=== PATIENT | female | born 1970 | race Caucasian/White ===

== ENCOUNTER 2018-10-27 05:05 | Emergency (ER) | payer MEDICAID ==
[~2018-10-27] VITALS: Ht 175.3 cm; Wt 67.0 kg
[~2018-10-27 05:05] MED LIST: CHLO25CA10 PO; ONDA4TAB6 PO
[2018-10-27 05:07] VITALS: BP 136/97
[2018-10-27] MEDS ORDERED: LIDOcaine 1% w/epiNEPHrine 1:200,000 30ml vial IM ONE (05:15)
[2018-10-27] MEDS ORDERED: CEPH500C5 PO (05:25)
[2018-10-27] MEDS ORDERED: BACDS PO (05:25)
== END 2018-10-27 05:35 | disposition home or self-care (01) ==
LOC: ER 05:05
DX: L03.115 Cellulitis of right lower limb (principal); L02.611 Cutaneous abscess of right foot; F15.90 Other stimulant use, unspecified, uncomplicated
CPT/HCPCS: 10060; 99283; J3490

== ENCOUNTER 2018-12-23 10:57 | Emergency (ER) | payer MEDICAID ==
[~2018-12-23] VITALS: Ht 175.3 cm; Wt 65.0 kg
[~2018-12-23 10:57] MED LIST changes: +CEPH500C5 PO
[2018-12-23] MEDS ORDERED: ondansetron/PF 4mg/2ml inj IV ONE (11:05)
[2018-12-23] MEDS ORDERED: normal saline 1000ML IV soln IVB ONE ×2 (11:05→12:30)
[2018-12-23] MEDS ORDERED: morphine 4 MG/ML inj SYRINge IV ONE (11:55)
[2018-12-23 12:03] LABS: EOSINOPHILS # (AUTO) 0.2 X10'3 (0-0.9); EOSINOPHILS % (AUTO) 3.8 % (0-6); HEMATOCRIT 40.6 % (35.0-45.0); HEMOGLOBIN 13.9 g/dl (12.0-16.0); LYMPHOCYTES # (AUTO) 1.3 X10'3 (1.1-4.8); LYMPHOCYTES % (AUTO) 30.2 % (21-51); MEAN CORPUSCULAR HEMOGLOBIN 35.3 PG (27.0-31.0); MEAN CORPUSCULAR HGB CONC 34.1 g/dL (33.0-36.5); MEAN CORPUSCULAR VOLUME 103.4 FL (78-98); MEAN PLATELET VOLUME 6.6 FL (7.4-10.4); MONOCYTES # (AUTO) 0.5 X10'3 (0-0.9); MONOCYTES % (AUTO) 12.3 % (2-12); NEUTROPHILS # (AUTO) 2.3 X10'3 (1.8-7.7); NEUTROPHILS % (AUTO) 52.7 % (42-75); PLATELET COUNT 212 X10'3 (140-440); RED BLOOD COUNT 3.93 X10'6 (4.20-5.60); RED CELL DISTRIBUTION WIDTH 17.1 % (11.5-14.5); WHITE BLOOD COUNT 4.3 X10'3 (4.5-11.0)
[2018-12-23 12:05] LABS: CLARITY,URINE CLOUDY (Clear); GLUCOSE, URINE NEGATIVE (Neg); KETONES,URINE TRACE mg/dl (Neg); LEUKOCYTE ESTERASE ,URINE NEGATIVE (Neg); NITRITES, URINE NEGATIVE (Neg); OCCULT BLOOD,URINE MODERATE (Neg); PROTEIN,URINE 30 mg/dl (Neg); UROBILINOGEN,URINE 0.2 E.U/dL (0.2-1.0)
[2018-12-23 12:06] LABS: URINE HCG NEGATIVE (NEG)
[2018-12-23 12:09] LABS: COLOR,URINE DARK YELLOW (Yellow); UA COLLECTION TYPE CLN CATCH MIDSTREAM
[2018-12-23 12:13] LABS: BACTERIA,URINE 2+ /HPF (Neg); MUCUS STRANDS MODERATE /LPF (Neg); SQUAMOUS EPITHELIAL CELL,UR MANY /LPF (FEW); WBC,URINE 0-4 /HPF (0-4)
[2018-12-23 12:14] LABS: ALANINE AMINOTRANSFERASE 74 U/L (12-78); ALBUMIN 3.2 G/DL (3.4-5.0); ALBUMIN/GLOBULIN RATIO 0.9 (1.1-1.5); ALKALINE PHOSPHATASE 108 IU/L (46-116); ANION GAP 7 (8-16); ASPARTATE AMINO TRANSFERASE 158 U/L (10-37); BILIRUBIN,TOTAL 0.7 MG/DL (0.1-1.0); BLOOD UREA NITROGEN 4 MG/DL (7-18); CALCIUM 8.8 MG/DL (8.5-10.1); CHLORIDE 102 MMOL/L (99-107); CREATININE 0.67 MG/DL (0.40-0.90); GLUCOSE 86 MG/DL (70-104); LIPASE 220 U/L (73-393); POTASSIUM 3.3 MMOL/L (3.5-5.1); SODIUM 141 MMOL/L (135-145); TOTAL CARBON DIOXIDE 32.4 MMOL/L (24-32); TOTAL PROTEIN 6.7 G/DL (6.4-8.2); eGFR > 90 ML/MIN
[2018-12-23 12:18] LABS: URINE AMPHETAMINE SCREEN NEGATIVE (Neg); URINE BARBITUATE SCREEN NEGATIVE (Neg); URINE BENZODIAZEPINES SCREEN NEGATIVE (Neg); URINE CANNABINOID SCREEN NEGATIVE (Neg); URINE COCAINE SCREEN NEGATIVE (Neg); URINE METHADONE SCREEN NEGATIVE (Neg); URINE OPIATE SCREEN NEGATIVE (Neg); URINE PHENCYCLIDINE SCREEN NEGATIVE (Neg)
[2018-12-23] MEDS ORDERED: potassium Cl 20 mEq SR tablet PO STA (12:18)
[2018-12-23] MEDS ORDERED: ONDA4TAB6 PO (13:56)
[2018-12-23 14:22] VITALS: BP 121/83
== END 2018-12-23 14:23 | disposition home or self-care (01) ==
LOC: ER 10:57
DX: R11.10 Vomiting, unspecified (principal); F10.10 Alcohol abuse, uncomplicated; F15.10 Other stimulant abuse, uncomplicated; Z79.899 Other long term (current) drug therapy; Y90.9 Presence of alcohol in blood, level not specified
CPT/HCPCS: 36415; 80053; 80305; 81001; 81025; 83690; 85025; 96361; 96374; 96375; 99284; J2270; J2405; J7030

== ENCOUNTER 2020-07-15 19:56 | Inpatient (IN) | payer MEDICAID ==
[~2020-07-15] VITALS: Ht 175.3 cm; Wt 75.0 kg
[~2020-07-15 19:56] MED LIST changes: -CEPH500C5 PO; +NITR100C6 PO
[2020-07-15] MEDS ORDERED: normal saline 1000ML IV soln IVB ONE (22:30)
[2020-07-15] MEDS ORDERED: thiamine 100mg/ml 2ml inj. IV ONE (22:30)
[2020-07-15] MEDS ORDERED: folic acid 1mg/0.2ml inj IV ONE (22:30)
[2020-07-15 22:49] LABS: BASOPHILS # (AUTO) 0.1 X10'3 (0-0.2); BASOPHILS % (AUTO) 0.6 % (0-1); HEMOGLOBIN 9.9 g/dl (12.0-16.0); LYMPHOCYTES # (AUTO) 3.1 X10'3 (1.1-4.8); MEAN PLATELET VOLUME 6.5 FL (7.4-10.4); MONOCYTES # (AUTO) 1.7 X10'3 (0-0.9); RED CELL DISTRIBUTION WIDTH 13.5 % (11.5-14.5)
[2020-07-15 22:50] LABS: EOSINOPHILS # (AUTO) 0.3 X10'3 (0-0.9); EOSINOPHILS % (AUTO) 1.8 % (0-6); HEMATOCRIT 28.5 % (35.0-45.0); LYMPHOCYTES % (AUTO) 20.7 % (21-51); MEAN CORPUSCULAR HEMOGLOBIN 36.9 PG (27.0-31.0); MEAN CORPUSCULAR HGB CONC 34.7 g/dL (33.0-36.5); MEAN CORPUSCULAR VOLUME 106.3 FL (78-98); MONOCYTES % (AUTO) 11.5 % (2-12); NEUTROPHILS # (AUTO) 9.8 X10'3 (1.8-7.7); NEUTROPHILS % (AUTO) 65.4 % (42-75); PLATELET COUNT 633 X10'3 (140-440); RED BLOOD COUNT 2.68 X10'6 (4.20-5.60)
[2020-07-15 23:01] LABS: ALANINE AMINOTRANSFERASE 19 U/L (12-78); ALBUMIN 2.5 G/DL (3.4-5.0); ALBUMIN/GLOBULIN RATIO 0.5 (1.1-1.5); ALKALINE PHOSPHATASE 319 IU/L (46-116); ANION GAP 12 (8-16); ASPARTATE AMINO TRANSFERASE 123 U/L (10-37); BILIRUBIN,TOTAL 1.7 MG/DL (0.1-1.0); BLOOD UREA NITROGEN 4 MG/DL (7-18); BUN/CREATININE RATIO 4.7 (6.6-38.0); CALCIUM 8.8 MG/DL (8.5-10.1); CHLORIDE 87 MMOL/L (99-107); CREATININE 0.86 MG/DL (0.40-0.90); ETHANOL 0.175 GM/DL (0.0-0.010); GLUCOSE 130 MG/DL (70-104); LIPASE 54 U/L (73-393); MAGNESIUM 1.7 MG/DL (1.5-2.4); PHOSPHORUS 2.1 MG/DL (2.3-4.5); SODIUM 127 MMOL/L (135-145); TOTAL CARBON DIOXIDE 28.5 MMOL/L (24-32); eGFR 70 ML/MIN
[2020-07-15 23:03] LABS: POTASSIUM 2.3 MMOL/L (3.5-5.1)
--- NOTE | 2020-07-15 23:11 | NUR ---
PTS FRIEND Kaitlynn (SPENSER VICTOR) CALLED TO CHECK ON HER. PT STATES OK TO GIVE HIM ANY UPDATES ON HER CONDITION AND PLAN OF CARE, BUT SHE DOES NOT WANT TO TALK WITH HIM NOW. STATES SHE IS TIRED AND WANTS TO SLEEP. Kaitlynn UPDATED OF THIS. HE ASKED IF SHE HAS HER CELL PHONE AND SHE REPORTS NO. I UPDATED HIM THAT I CAN PROVIDE HER WITH A PHONE IF SHE WANTS TO CALL YOU. ASKED FOR HIS NUMBER AND HE WOULD NOT GIVE TO ME, STATES "SHE HAS THE NUMBER". STATES HE MAY BE ABLE TO PICK HER UP FOR DISCHARGE, BUT NOT CERTAIN.
[2020-07-15] MEDS ORDERED: potassium chloride 10mEq ER tablet PO STA (23:18)
[2020-07-15] MEDS ORDERED: Neutra Phos packet PO STA (23:18)
[2020-07-15] MEDS ORDERED: LORazepam 2 mg/ml vial IV ONE (23:25)
[2020-07-15] MEDS: potassium Cl 10 mEq/100mL bag IV SCH (23:44)
[2020-07-15 23:58] LABS: CLARITY,URINE CLOUDY (Clear); COLOR,URINE YELLOW (Yellow); GLUCOSE, URINE NEGATIVE (Neg); KETONES,URINE TRACE mg/dl (Neg); LEUKOCYTE ESTERASE ,URINE MODERATE (Neg); NITRITES, URINE NEGATIVE (Neg); OCCULT BLOOD,URINE TRACE-INTACT (Neg); PROTEIN,URINE 30 mg/dl (Neg); UA COLLECTION TYPE CLN CATCH MIDSTREAM; UROBILINOGEN,URINE >=8.0 E.U/dL (0.2-1.0)
[2020-07-16 00:03] LABS: BACTERIA,URINE 4+ /HPF (Neg); SQUAMOUS EPITHELIAL CELL,UR FEW /LPF (FEW); WBC,URINE 50-100 /HPF (0-4)
[2020-07-16] MEDS ORDERED: potassium Cl 20 mEq SR tablet PO PRN (00:05)
[2020-07-16] MEDS ORDERED: dextrose 50%-water 50ml dispensing syringe IV PRN (00:05)
[2020-07-16] MEDS ORDERED: thiamine inj. 100 MG in normal saline 100ml IV soln 100 ML IV ONE (00:05)
[2020-07-16] MEDS ORDERED: ondansetron/PF 4mg/2ml inj IV PRN (00:05)
[2020-07-16] MEDS ORDERED: normal saline 1000ml 1,000 ML IV SCH (00:05)
[2020-07-16] MEDS ORDERED: magnesium 2GM in 50ml NS 50 ML IV PRN (00:05)
[2020-07-16] MEDS ORDERED: potassium CL 10mEq/100ml bag 100 ML IV PRN ×2 (00:05)
[2020-07-16] MEDS ORDERED: magnesium 2GM in 50ml NS 50 ML IV ONE (00:05)
[2020-07-16] MEDS ORDERED: haloperidol lactate 5mg/ml inj IM PRN (00:05)
[2020-07-16] MEDS ORDERED: acetaminophen 325mg tablet PO PRN (00:05)
[2020-07-16] MEDS ORDERED: LORazepam 2 mg/ml vial IV PRN (00:05)
[2020-07-16] MEDS ORDERED: haloperidol 5mg tablet PO PRN (00:05)
[2020-07-16] MEDS ORDERED: morphine 2 MG/ML inj. syringe IV PRN (00:05)
[2020-07-16] MEDS ORDERED: mag hydrox/Alum hydrox/simeth 30ml oral suspension PO PRN (00:05)
[2020-07-16] MEDS ORDERED: magnesium hydroxide 30ml (MOM) UD suspension PO PRN (00:05)
[2020-07-16] MEDS ORDERED: magnesium 4gm in 100ml NS 100 ML IV PRN (00:05)
[2020-07-16] MEDS ORDERED: magnesium Cl slow-release 64mg tablet PO PRN (00:05)
[2020-07-16] MEDS ORDERED: NO HOME MEDS (00:15)
[2020-07-16] MEDS ORDERED: thiamine 100mg/ml 2ml inj. IV ONE (00:20)
[2020-07-16] MEDS: potassium Cl 10 mEq/100mL bag IV SCH (00:36)
--- NOTE | 2020-07-16 06:19 | NUR ---
PATIENT ON BED ASLEEP,AWAITING FOR INPATIENT ROOM ASSIGNMENT.
[2020-07-16] MEDS: K and/or MAG REPLACEMENT MC SCH ×2 (08:00→20:04)
[2020-07-16 08:34] LABS: ALBUMIN 2.1 G/DL (3.4-5.0); ANION GAP 5 (8-16); BLOOD UREA NITROGEN 4 MG/DL (7-18); BUN/CREATININE RATIO 5.3 (6.6-38.0); CALCIUM 8.6 MG/DL (8.5-10.1); CHLORIDE 97 MMOL/L (99-107); CREATININE 0.75 MG/DL (0.40-0.90); GLUCOSE 107 MG/DL (70-104); POTASSIUM 3.3 MMOL/L (3.5-5.1); SODIUM 131 MMOL/L (135-145); TOTAL CARBON DIOXIDE 28.9 MMOL/L (24-32); eGFR 82 ML/MIN
[2020-07-16] MEDS: multivitamins, therapeutics tablet PO SCH (08:41)
[2020-07-16] MEDS: thiamine 100mg tablet PO SCH (08:42)
[2020-07-16] MEDS: folic acid 1mg tablet PO SCH (08:42)
[2020-07-16] MEDS: docusate sod 100mg capsule PO SCH ×2 (08:42→20:00)
[2020-07-16] MEDS: CefTRIAXone/D5W-Rocephin 1gm 50 ML IV SCH (08:43)
[2020-07-16] MEDS: potassium Cl 20 mEq SR tablet PO PRN ×2 (09:12→15:34)
--- NOTE | 2020-07-16 10:00 | NUR ---
breakfast tray taken out from the room.
[2020-07-16] MEDS ORDERED: folic acid 1mg/0.2ml inj IV SCH (12:00)
[2020-07-16] MEDS ORDERED: thiamine inj. 100 MG, MVI, adult No.4 with vit. K 10 ML in dextrose 5% water 500ml 500 ML IV SCH ×3 (12:00)
--- NOTE | 2020-07-16 12:33 | NUR ---
DR. HIGGINS AT BEDSIDE,ADVANCE DIET TO REGULAR.
--- NOTE | 2020-07-16 13:42 | NUR ---
lunch tray at bedside.
--- NOTE | 2020-07-16 13:48 | NUR ---
patient asleep.awaiting room assignment.
--- NOTE | 2020-07-16 15:38 | NUR ---
patient tachy 120's-130,message sent to hospitalist.
--- NOTE | 2020-07-16 18:54 | NUR ---
Her mom is here visiting, the patient is eating her supper. She said she is feeling stronger than this afternoon, but states she still feels a little foggy and tired. Encouraged her to eat. Informed her that she will more than likely feel even better tomorrow. That it takes about 24 hours for the abx to kick in to start fighting that UTI that she has.
--- NOTE | 2020-07-16 20:21 | NUR ---
Spoke to hospitalist and asked for a sleeping aide for the patient, as the pt. requested a sleeping medicaiton. She stated she will put in a few items to see what works for her.
[2020-07-16] MEDS ORDERED: temazepam 15mg capsule PO PRN (20:25)
[2020-07-16] MEDS ORDERED: diphenhydrAMINE 50 mg/ml inj IV PRN (20:25)
[2020-07-16] MEDS ORDERED: Melatonin 3mg tablet PO SCH (21:00)
--- NOTE | 2020-07-16 21:15 | NUR ---
Received report from ER nurse Rosie RN. Will assume patient care.
--- NOTE | 2020-07-16 21:32 | NUR ---
Patient arrived in room. Patient AOx4. BLL, call light in reach, seizure precautions in place.
[2020-07-16 21:33] VITALS: BP 101/64
[2020-07-17 06:00] VITALS: BP 96/64
--- NOTE | 2020-07-17 06:29 | NUR ---
Patient in room ORTHO 4012. I have received report from Shilpa CRAFT and had the opportunity to ask questions and assume patient care.
[2020-07-17 07:30] LABS: BASOPHILS % (AUTO) 0.5 % (0-1); EOSINOPHILS # (AUTO) 0.2 X10'3 (0-0.9); EOSINOPHILS % (AUTO) 2.3 % (0-6); HEMATOCRIT 22.2 % (35.0-45.0); HEMOGLOBIN 7.6 g/dl (12.0-16.0); LYMPHOCYTES # (AUTO) 1.6 X10'3 (1.1-4.8); LYMPHOCYTES % (AUTO) 17.5 % (21-51); MEAN CORPUSCULAR HEMOGLOBIN 36.4 PG (27.0-31.0); MEAN CORPUSCULAR HGB CONC 34.2 g/dL (33.0-36.5); MEAN CORPUSCULAR VOLUME 106.4 FL (78-98); MEAN PLATELET VOLUME 6.6 FL (7.4-10.4); MONOCYTES # (AUTO) 1.3 X10'3 (0-0.9); MONOCYTES % (AUTO) 14.1 % (2-12); NEUTROPHILS # (AUTO) 6.2 X10'3 (1.8-7.7); NEUTROPHILS % (AUTO) 65.6 % (42-75); PLATELET COUNT 441 X10'3 (140-440); RED BLOOD COUNT 2.09 X10'6 (4.20-5.60); RED CELL DISTRIBUTION WIDTH 13.6 % (11.5-14.5); WHITE BLOOD COUNT 9.4 X10'3 (4.5-11.0)
[2020-07-17] MEDS: thiamine 100mg tablet PO SCH (07:37)
[2020-07-17] MEDS: folic acid 1mg tablet PO SCH (07:37)
[2020-07-17] MEDS: multivitamins, therapeutics tablet PO SCH (07:37)
[2020-07-17] MEDS: CefTRIAXone/D5W-Rocephin 1gm 50 ML IV SCH (07:37)
[2020-07-17 07:38] LABS: ALANINE AMINOTRANSFERASE 19 U/L (12-78); ALBUMIN 1.9 G/DL (3.4-5.0); ALBUMIN/GLOBULIN RATIO 0.4 (1.1-1.5); ALKALINE PHOSPHATASE 255 IU/L (46-116); AMYLASE 23 U/L (25-115); ANION GAP 6 (8-16); ASPARTATE AMINO TRANSFERASE 102 U/L (10-37); BILIRUBIN,TOTAL 2.3 MG/DL (0.1-1.0); BLOOD UREA NITROGEN 3 MG/DL (7-18); BUN/CREATININE RATIO 4.8 (6.6-38.0); CALCIUM 8.5 MG/DL (8.5-10.1); CHLORIDE 99 MMOL/L (99-107); CREATININE 0.63 MG/DL (0.40-0.90); GLUCOSE 92 MG/DL (70-104); LIPASE < 50 U/L (73-393); MAGNESIUM 1.7 MG/DL (1.5-2.4); POTASSIUM 3.7 MMOL/L (3.5-5.1); SODIUM 134 MMOL/L (135-145); TOTAL PROTEIN 6.2 G/DL (6.4-8.2); eGFR > 90 ML/MIN
[2020-07-17] MEDS: docusate sod 100mg capsule PO SCH (07:59)
[2020-07-17] MEDS: K and/or MAG REPLACEMENT MC SCH (08:00)
[2020-07-17 10:00] VITALS: BP 92/57
[2020-07-17] MEDS ORDERED: pneumococcal 23-VAL P-sac vacc 25 mcg/0.5ml vial IMVAC ONE (10:00)
[2020-07-17] MEDS ORDERED: FLU VACC QS2020-21(6MOS UP)/PF 60 MCG/0.5 ML SYRINGE IMVAC ONE (10:00)
[2020-07-17] MEDS ORDERED: MULT-25 PO (12:17)
[2020-07-17] MEDS ORDERED: CIPR250T4 PO (12:17)
[2020-07-17] MEDS ORDERED: thiamine tablet PO (12:17)
[2020-07-17] MEDS ORDERED: folic acid tablet PO (12:17)
[2020-07-18] MEDS ORDERED: LORazepam 1 MG tablet PO PRN (00:05)
[2020-07-18] MEDS ORDERED: LORazepam 2 mg/ml vial IV PRN (00:05)
[2020-07-20] MEDS ORDERED: LORazepam 2 mg/ml vial IV PRN (00:05)
[2020-07-20] MEDS ORDERED: LORazepam 1 MG tablet PO PRN (00:05)
== END 2020-07-17 12:53 | disposition home or self-care (01) | DRG 425 ==
LOC: ER 19:57 → ED HOLD 07-16 00:02 → ORTHO 4S 07-16 21:15
PROVIDERS: ADMIT Family Medicine; ATTEND Family Medicine
DX: E87.6 Hypokalemia (principal); F10.129 Alcohol abuse with intoxication, unspecified; F15.90 Other stimulant use, unspecified, uncomplicated; N39.0 Urinary tract infection, site not specified; Z79.899 Other long term (current) drug therapy; Z28.21 Immunization not carried out because of patient refusal
CPT/HCPCS: 36415; 80048; 80053; 80320; 81001; 82150; 82948; 83690; 83735; 84100; 85025; 85610; 87077; 87081; 87088; 87186; 93005; 96374; 97161; 97530; 99285; G0378; J0696; J2060; J3411; J3475; J3480; J3490; J7030

== ENCOUNTER 2021-01-10 09:31 | Emergency (ER) | payer MEDICAID ==
[~2021-01-10] VITALS: Ht 172.7 cm; Wt 72.0 kg
[~2021-01-10 09:31] MED LIST changes: -CHLO25CA10 PO; +MULT-25 PO; -NITR100C6 PO; -ONDA4TAB6 PO; +folic acid tablet PO; +thiamine tablet PO
[2021-01-10 11:37] LABS: ALANINE AMINOTRANSFERASE 85 U/L (12-78); ALBUMIN 3.3 G/DL (3.4-5.0); ALBUMIN/GLOBULIN RATIO 0.7 (1.1-1.5); ALKALINE PHOSPHATASE 418 IU/L (46-116); ANION GAP 15 (8-16); ASPARTATE AMINO TRANSFERASE 250 U/L (10-37); BILIRUBIN,TOTAL 2.6 MG/DL (0.1-1.0); BLOOD UREA NITROGEN 7 MG/DL (7-18); BUN/CREATININE RATIO 10.9 (6.6-38.0); CALCIUM 8.2 MG/DL (8.5-10.1); CHLORIDE 103 MMOL/L (99-107); CREATININE 0.64 MG/DL (0.40-0.90); GLUCOSE 111 MG/DL (70-104); POTASSIUM 3.7 MMOL/L (3.5-5.1); SODIUM 145 MMOL/L (135-145); TOTAL CARBON DIOXIDE 26.9 MMOL/L (24-32); TOTAL PROTEIN 7.9 G/DL (6.4-8.2); eGFR > 90 ML/MIN
[2021-01-10 15:06] VITALS: BP 144/102
== END 2021-01-10 15:08 | disposition home or self-care (01) ==
LOC: ER 09:32
DX: F10.129 Alcohol abuse with intoxication, unspecified (principal); M25.571 Pain in right ankle and joints of right foot; M25.572 Pain in left ankle and joints of left foot; F15.90 Other stimulant use, unspecified, uncomplicated; Z79.899 Other long term (current) drug therapy; Y90.0 Blood alcohol level of less than 20 mg/100 ml
CPT/HCPCS: 36415; 73610; 80053; 83880; 93971; 99285

== ENCOUNTER 2021-04-16 22:19 | Emergency (ER) | payer MEDICAID ==
[~2021-04-16] VITALS: Ht 175.3 cm; Wt 69.1 kg
[2021-04-16 22:22] VITALS: BP 111/88
[2021-04-16] MEDS ORDERED: normal saline 1000ml 1,000 ML IV ONE (23:05)
[2021-04-16] MEDS ORDERED: ondansetron/PF 4mg/2ml inj IV ONE (23:05)
--- NOTE | 2021-04-16 23:07 | NUR ---
dr godinez at bedside.
[2021-04-16 23:14] LABS: BASOPHILS # (AUTO) 0.1 X10'3 (0-0.2); BASOPHILS % (AUTO) 0.8 % (0-1); EOSINOPHILS # (AUTO) 0.4 X10'3 (0-0.9); EOSINOPHILS % (AUTO) 4.2 % (0-6); HEMATOCRIT 36.7 % (35.0-45.0); HEMOGLOBIN 12.3 g/dl (12.0-16.0); LYMPHOCYTES # (AUTO) 2.6 X10'3 (1.1-4.8); LYMPHOCYTES % (AUTO) 26.1 % (21-51); MEAN CORPUSCULAR HEMOGLOBIN 31.6 PG (27.0-31.0); MEAN CORPUSCULAR HGB CONC 33.5 g/dL (33.0-36.5); MEAN CORPUSCULAR VOLUME 94.5 FL (78-98); MEAN PLATELET VOLUME 6.5 FL (7.4-10.4); MONOCYTES # (AUTO) 0.8 X10'3 (0-0.9); MONOCYTES % (AUTO) 8.7 % (2-12); NEUTROPHILS # (AUTO) 5.9 X10'3 (1.8-7.7); NEUTROPHILS % (AUTO) 60.2 % (42-75); PLATELET COUNT 483 X10'3 (140-440); RED BLOOD COUNT 3.88 X10'6 (4.20-5.60); RED CELL DISTRIBUTION WIDTH 16.7 % (11.5-14.5); WHITE BLOOD COUNT 9.8 X10'3 (4.5-11.0)
[2021-04-16 23:37] LABS: ALANINE AMINOTRANSFERASE 23 U/L (12-78); ALBUMIN/GLOBULIN RATIO 0.6 (1.1-1.5); ALKALINE PHOSPHATASE 225 IU/L (46-116); ANION GAP 15 (8-16); ASPARTATE AMINO TRANSFERASE 74 U/L (10-37); BILIRUBIN,TOTAL 2.4 MG/DL (0.1-1.0); BLOOD UREA NITROGEN 1 MG/DL (7-18); BUN/CREATININE RATIO 1.4 (6.6-38.0); CALCIUM 8.2 MG/DL (8.5-10.1); CHLORIDE 105 MMOL/L (99-107); GLUCOSE 132 MG/DL (70-104); LIPASE < 50 U/L (73-393); SODIUM 143 MMOL/L (135-145); TOTAL CARBON DIOXIDE 22.7 MMOL/L (24-32); TOTAL PROTEIN 8.2 G/DL (6.4-8.2); eGFR 89 ML/MIN
[2021-04-16 23:40] LABS: ETHANOL 0.325 GM/DL (0.0-0.010)
[2021-04-17] MEDS ORDERED: ketorolac trometh. 30mg/ml inj. IV ONE (00:10)
[2021-04-17] MEDS ORDERED: pantoprazole 40 MG vial IV ONE (00:10)
[2021-04-17] MEDS ORDERED: famotidine/PF 10 mg/ml inj IV ONE (00:10)
[2021-04-17] MEDS ORDERED: ONDA4TAB6 PO (00:12)
[2021-04-17] MEDS ORDERED: POTA20TA19 PO (00:16)
== END 2021-04-17 00:31 | disposition home or self-care (01) ==
LOC: EDBD 22:19 → ER 22:19
DX: K29.20 Alcoholic gastritis without bleeding (principal); R19.7 Diarrhea, unspecified; F15.10 Other stimulant abuse, uncomplicated; K92.1 Melena; R11.2 Nausea with vomiting, unspecified
CPT/HCPCS: 36415; 80053; 80320; 83690; 83880; 85025; 96361; 96374; 96375; 99284; C9113; J1885; J2405; J3490; J7030

== ENCOUNTER → 2021-06-27 | Emergency (ER) | payer MEDICAID ==
[~2021-06-27] VITALS: Ht 175.3 cm; Wt 68.2 kg
[~2021-06-27] MED LIST changes: +ONDA4TAB6 PO
[2021-06-27 15:14] VITALS: BP 117/80
[2021-06-27 15:38] LABS: BASOPHILS % (AUTO) 0.2 % (0-1); EOSINOPHILS # (AUTO) 0.3 X10'3 (0-0.9); EOSINOPHILS % (AUTO) 4.3 % (0-6); HEMOGLOBIN 10.8 g/dl (12.0-16.0); LYMPHOCYTES # (AUTO) 0.8 X10'3 (1.1-4.8); LYMPHOCYTES % (AUTO) 12.8 % (21-51); MEAN CORPUSCULAR HEMOGLOBIN 30.9 PG (27.0-31.0); MEAN CORPUSCULAR HGB CONC 32.7 g/dL (33.0-36.5); MEAN CORPUSCULAR VOLUME 94.5 FL (78-98); MONOCYTES # (AUTO) 0.5 X10'3 (0-0.9); MONOCYTES % (AUTO) 7.8 % (2-12); NEUTROPHILS # (AUTO) 4.8 X10'3 (1.8-7.7); NEUTROPHILS % (AUTO) 74.9 % (42-75); PLATELET COUNT 228 X10'3 (140-440); RED BLOOD COUNT 3.49 X10'6 (4.20-5.60); RED CELL DISTRIBUTION WIDTH 15.3 % (11.5-14.5); WHITE BLOOD COUNT 6.4 X10'3 (4.5-11.0)
[2021-06-27 15:46] LABS: ALANINE AMINOTRANSFERASE 24 U/L (12-78); ALBUMIN/GLOBULIN RATIO 0.6 (1.1-1.5); ALKALINE PHOSPHATASE 198 IU/L (46-116); ANION GAP 11 (8-16); ASPARTATE AMINO TRANSFERASE 45 U/L (10-37); BLOOD UREA NITROGEN 4 MG/DL (7-18); BUN/CREATININE RATIO 4.8 (6.6-38.0); CALCIUM 8.1 MG/DL (8.5-10.1); CHLORIDE 102 MMOL/L (99-107); CREATININE 0.84 MG/DL (0.40-0.90); GLUCOSE 140 MG/DL (70-104); SODIUM 136 MMOL/L (135-145); TOTAL CARBON DIOXIDE 23.1 MMOL/L (24-32); TOTAL PROTEIN 8.1 G/DL (6.4-8.2); eGFR 72 ML/MIN
[2021-06-27 15:52] LABS: POTASSIUM 2.8 MMOL/L (3.5-5.1)
[2021-06-27 16:35] LABS: URINE HCG NEGATIVE (NEG)
[2021-06-27 16:41] LABS: CLARITY,URINE CLEAR (Clear); COLOR,URINE AMBER (Yellow); GLUCOSE, URINE NEGATIVE (Neg); KETONES,URINE NEGATIVE (Neg); PROTEIN,URINE TRACE mg/dl (Neg); UA COLLECTION TYPE CLN CATCH MIDSTREAM
[2021-06-27 16:42] LABS: LEUKOCYTE ESTERASE ,URINE NEGATIVE (Neg); NITRITES, URINE NEGATIVE (Neg); OCCULT BLOOD,URINE NEGATIVE (Neg); UROBILINOGEN,URINE 0.2 E.U/dL (0.2-1.0)
[2021-06-27 16:50] LABS: BACTERIA,URINE NONE SEEN /HPF (Neg); RBC,URINE 0-2 /HPF (0-2); WBC,URINE 0-4 /HPF (0-4)
[2021-06-27 16:51] LABS: MUCUS STRANDS FEW /LPF (Neg); SQUAMOUS EPITHELIAL CELL,UR MANY /LPF (FEW)
--- NOTE | 2021-06-27 22:47 | NUR ---
PT WAS CALLED TO ROOM, NOT IN LOBBY. PT'S POTASSIUM LEVEL 2.8, CALLED TO COME BACK TO SEE .
== END | disposition left against medical advice (07) ==
LOC: ER 15:03
DX: R10.30 Lower abdominal pain, unspecified (principal); R19.7 Diarrhea, unspecified; Z53.21 Procedure and treatment not carried out due to patient leaving prior to being seen by health care provider
CPT/HCPCS: 36415; 80053; 81001; 81025; 85025

== ENCOUNTER 2021-09-09 06:11 | Emergency (ER) | payer MEDICAID ==
[~2021-09-09] VITALS: Ht 175.3 cm; Wt 68.2 kg
[2021-09-09] MEDS ORDERED: LORazepam 2 mg/ml vial IV ONE (06:50)
[2021-09-09] MEDS ORDERED: ketorolac trometh. 30mg/ml inj. IV ONE (06:50)
[2021-09-09] MEDS ORDERED: normal saline 1000ML IV soln IVB ONE (06:50)
[2021-09-09] MEDS ORDERED: LORazepam 1 MG tablet PO ONE (06:50)
[2021-09-09 07:01] LABS: CLARITY,URINE SLIGHTLY CLOUDY (Clear); COLOR,URINE YELLOW (Yellow); GLUCOSE, URINE NEGATIVE (Neg); KETONES,URINE NEGATIVE (Neg); LEUKOCYTE ESTERASE ,URINE NEGATIVE (Neg); NITRITES, URINE NEGATIVE (Neg); OCCULT BLOOD,URINE NEGATIVE (Neg); PH,URINE 6.5 (4.8-8.0); PROTEIN,URINE NEGATIVE (Neg)
[2021-09-09 07:03] LABS: UA COLLECTION TYPE STRAIGHT CATH
[2021-09-09 07:08] VITALS: BP 138/82
--- NOTE | 2021-09-09 07:08 | NUR ---
[employer] RELAY ADJUSTER AT BEDSIDE.
[2021-09-09 07:23] LABS: BASOPHILS % (AUTO) 0.4 % (0-1); EOSINOPHILS # (AUTO) 0.3 X10'3 (0-0.9); EOSINOPHILS % (AUTO) 4.5 % (0-6); HEMATOCRIT 22.6 % (35.0-45.0); HEMOGLOBIN 7.4 g/dl (12.0-16.0); LYMPHOCYTES # (AUTO) 1.5 X10'3 (1.1-4.8); LYMPHOCYTES % (AUTO) 20.3 % (21-51); MEAN CORPUSCULAR HEMOGLOBIN 27.6 PG (27.0-31.0); MEAN CORPUSCULAR HGB CONC 32.9 g/dL (33.0-36.5); MEAN CORPUSCULAR VOLUME 83.8 FL (78-98); MEAN PLATELET VOLUME 6.8 FL (7.4-10.4); MONOCYTES # (AUTO) 0.7 X10'3 (0-0.9); MONOCYTES % (AUTO) 9.6 % (2-12); NEUTROPHILS # (AUTO) 4.7 X10'3 (1.8-7.7); NEUTROPHILS % (AUTO) 65.2 % (42-75); PLATELET COUNT 192 X10'3 (140-440); RED BLOOD COUNT 2.69 X10'6 (4.20-5.60); RED CELL DISTRIBUTION WIDTH 18.4 % (11.5-14.5); WHITE BLOOD COUNT 7.2 X10'3 (4.5-11.0)
[2021-09-09 07:29] LABS: ALANINE AMINOTRANSFERASE 44 U/L (12-78); ALBUMIN 3.1 G/DL (3.4-5.0); ALBUMIN/GLOBULIN RATIO 0.8 (1.1-1.5); ALKALINE PHOSPHATASE 148 IU/L (46-116); ANION GAP 13 (8-16); ASPARTATE AMINO TRANSFERASE 109 U/L (10-37); BILIRUBIN,TOTAL 1.2 MG/DL (0.1-1.0); BLOOD UREA NITROGEN 13 MG/DL (7-18); BUN/CREATININE RATIO 23.2 (6.6-38.0); CALCIUM 8.5 MG/DL (8.5-10.1); CHLORIDE 106 MMOL/L (99-107); CREATININE 0.56 MG/DL (0.40-0.90); GLUCOSE 106 MG/DL (70-104); POTASSIUM 3.6 MMOL/L (3.5-5.1); SODIUM 142 MMOL/L (135-145); TOTAL CARBON DIOXIDE 23.3 MMOL/L (24-32); TOTAL PROTEIN 6.9 G/DL (6.4-8.2); eGFR > 90 ML/MIN
[2021-09-09 07:31] LABS: MUCUS STRANDS MANY /LPF (Neg); SQUAMOUS EPITHELIAL CELL,UR MANY /LPF (FEW)
[2021-09-09 07:33] LABS: BACTERIA,URINE FEW /HPF (Neg); RBC,URINE 0-2 /HPF (0-2); WBC CLUMPS,URINE FEW /HPF (NEGATIVE)
[2021-09-09 07:35] LABS: LIPASE 127 U/L (73-393)
[2021-09-09] MEDS ORDERED: FURO-150 PO (08:20)
[2021-09-09] MEDS ORDERED: POTA-207 PO (08:20)
[2021-09-09] MEDS ORDERED: CEPH-585 PO (08:45)
--- NOTE | 2021-09-09 09:15 | NUR ---
pt provided with sandwhich and water. pt will call mother for ride home. PIV removed, pressure dressing applied.
== END 2021-09-09 09:17 | disposition home or self-care (01) ==
LOC: ER 06:12
DX: D64.9 Anemia, unspecified (principal); R60.1 Generalized edema; N39.0 Urinary tract infection, site not specified; M79.89 Other specified soft tissue disorders; F17.210 Nicotine dependence, cigarettes, uncomplicated; F15.90 Other stimulant use, unspecified, uncomplicated; Z72.89 Other problems related to lifestyle; Z79.2 Long term (current) use of antibiotics; Z79.899 Other long term (current) drug therapy
CPT/HCPCS: 29125; 36415; 71045; 73110; 73130; 80053; 81001; 83690; 83880; 85025; 87088; 93005; 96361; 96374; 96375; 99285; J1885; J2060; J7030

== ENCOUNTER 2022-07-01 14:28 | Emergency (ER) | payer MEDICAID ==
[~2022-07-01 14:28] MED LIST changes: +CEPH-585 PO
== END 2022-07-01 16:28 | disposition left against medical advice (07) ==
LOC: ER 14:30
DX: Z04.71 Encounter for examination and observation following alleged adult physical abuse (principal); Z53.21 Procedure and treatment not carried out due to patient leaving prior to being seen by health care provider

== ENCOUNTER 2022-07-01 17:13 | Emergency (ER) | payer MEDICAID ==
[~2022-07-01] VITALS: Ht 175.3 cm; Wt 65.9 kg
[2022-07-01 17:38] VITALS: BP 137/82
== END 2022-07-02 00:50 | disposition left against medical advice (07) ==
LOC: ER 17:13
DX: Z04.71 Encounter for examination and observation following alleged adult physical abuse (principal); Z53.21 Procedure and treatment not carried out due to patient leaving prior to being seen by health care provider

== ENCOUNTER 2022-12-12 04:08 | Emergency (ER) | payer MEDICAID ==
[~2022-12-12] VITALS: Ht 175.3 cm; Wt 61.4 kg
[~2022-12-12 04:08] MED LIST changes: -CEPH-585 PO
[2022-12-12 05:08] VITALS: BP 152/99
[2022-12-12] MEDS ORDERED: IBUP-1985 PO ×2 (05:39)
== END 2022-12-12 06:00 | disposition home or self-care (01) ==
LOC: ER 04:09
DX: M54.2 Cervicalgia (principal); F10.10 Alcohol abuse, uncomplicated; F15.90 Other stimulant use, unspecified, uncomplicated; Z79.899 Other long term (current) drug therapy; Y90.9 Presence of alcohol in blood, level not specified
CPT/HCPCS: 99282

== ENCOUNTER 2023-03-12 04:05 | Inpatient (IN) | payer MEDICAID ==
[~2023-03-12] VITALS: Ht 175.3 cm; Wt 65.9 kg
[2023-03-12] VITALS (13 sets, daily range): BP systolic 98–127; BP diastolic 56–79
[~2023-03-12 04:05] MED LIST changes: +GABA300C PO; +IBUP-1985 PO
[2023-03-12] MEDS ORDERED: pantoprazole 40mg IV 80 MG in normal saline 100ml IV soln 100 ML IV ONE (04:15)
[2023-03-12] MEDS ORDERED: normal saline 1000ML IV soln IVB ONE (04:15)
[2023-03-12] MEDS ORDERED: CefTRIAXone/D5W-Rocephin 1gm 50 ML IV ONE (04:20)
[2023-03-12] MEDS ORDERED: pantoprazole 40MG/NS 100ML BAG 100 ML IV ONE ×2 (04:20→04:34)
[2023-03-12] MEDS ORDERED: ondansetron/PF 4mg/2ml inj IV ONE (04:20)
[2023-03-12 04:34] LABS: BASOPHILS % (AUTO) 0.3 % (0-1); EOSINOPHILS % (AUTO) 0 % (0-6); LYMPHOCYTES # (AUTO) 2.5 X10'3 (1.1-4.8); LYMPHOCYTES % (AUTO) 19.3 % (21-51); MEAN CORPUSCULAR HEMOGLOBIN 25.9 PG (27.0-31.0); MEAN CORPUSCULAR VOLUME 80.8 FL (78-98); MEAN PLATELET VOLUME 7.5 FL (7.4-10.4); MONOCYTES # (AUTO) 0.8 X10'3 (0-0.9); MONOCYTES % (AUTO) 6.4 % (2-12); NEUTROPHILS # (AUTO) 9.5 X10'3 (1.8-7.7); PLATELET COUNT 259 X10'3 (140-440); RED BLOOD COUNT 1.69 X10'6 (4.20-5.60); RED CELL DISTRIBUTION WIDTH 19.3 % (11.5-14.5); WHITE BLOOD COUNT 12.8 X10'3 (4.5-11.0)
[2023-03-12 04:50] LABS: APTT 21 SECONDS (22-32)
[2023-03-12 04:53] LABS: ALANINE AMINOTRANSFERASE 21 U/L (12-78); ALBUMIN 2.9 G/DL (3.4-5.0); ALKALINE PHOSPHATASE 87 IU/L (46-116); ANION GAP 11 (8-16); ASPARTATE AMINO TRANSFERASE 24 U/L (10-37); BILIRUBIN,TOTAL 1.2 MG/DL (0.1-1.0); BLOOD UREA NITROGEN 42 MG/DL (7-18); BUN/CREATININE RATIO 35.3 (10.0-20.0); CALCIUM 7.7 MG/DL (8.5-10.1); CHLORIDE 94 MMOL/L (99-107); CREATININE 1.19 MG/DL (0.40-0.90); ETHANOL < 0.010 GM/DL (0.0-0.010); GLUCOSE 169 MG/DL (70-104); POTASSIUM 3.1 MMOL/L (3.5-5.1); SODIUM 132 MMOL/L (135-145); TOTAL CARBON DIOXIDE 26.9 MMOL/L (24-32); TOTAL PROTEIN 5.9 G/DL (6.4-8.2); eGFR 48 ML/MIN
[2023-03-12 04:55] LABS: HEMATOCRIT 13.6 % (35.0-45.0); HEMOGLOBIN 4.4 g/dl (12.0-16.0)
[2023-03-12] MEDS: octreotide inj. 500 MCG in normal saline 100ml IV soln 97.5 ML IV SCH (05:06)
[2023-03-12] MEDS ORDERED: GABA-530 PO (05:13)
[2023-03-12] MEDS ORDERED: FERR325T7 PO (05:13)
[2023-03-12] MEDS ORDERED: THIA100T66 PO (05:13)
[2023-03-12] MEDS ORDERED: FOLI1TAB27 PO (05:13)
[2023-03-12] MEDS ORDERED: PANT40TA54 PO (05:13)
--- NOTE | 2023-03-12 05:15 | NUR ---
dr mendez at bedside
--- NOTE | 2023-03-12 05:30 | NUR ---
witnessed conversation with patient and dr nolan about risks and benefits of blood transfusion. pt agrees with recieving blood and has had transfusion in the past with no compications.
[2023-03-12] MEDS ORDERED: potassium Cl 20 mEq SR tablet PO PRN (07:25)
[2023-03-12] MEDS ORDERED: magnesium 2GM in 50ml NS 50 ML IV PRN (07:25)
[2023-03-12] MEDS ORDERED: potassium Cl 40MEQ/1/2NS 520ml 520 ML IV PRN (07:25)
[2023-03-12] MEDS ORDERED: magnesium 4gm in 100ml NS 100 ML IV PRN (07:25)
[2023-03-12] MEDS: normal saline 1000ml 1,000 ML IV SCH ×3 (07:25→20:01)
[2023-03-12] MEDS ORDERED: ondansetron/PF 4mg/2ml inj IV PRN (07:25)
[2023-03-12] MEDS ORDERED: magnesium Cl slow-release 64mg tablet PO PRN (07:25)
[2023-03-12 07:45] LABS: CLARITY,URINE CLOUDY (Clear); COLOR,URINE YELLOW (Yellow); GLUCOSE, URINE NEGATIVE (Neg); KETONES,URINE NEGATIVE (Neg); LEUKOCYTE ESTERASE ,URINE SMALL (Neg); NITRITES, URINE NEGATIVE (Neg); OCCULT BLOOD,URINE NEGATIVE (Neg); PROTEIN,URINE 30 mg/dl (Neg)
[2023-03-12 07:49] LABS: UA COLLECTION TYPE OTHER
[2023-03-12 07:51] LABS: BACTERIA,URINE 1+ /HPF (Neg); MUCUS STRANDS FEW /LPF (Neg); RBC,URINE 0-2 /HPF (0-2); SQUAMOUS EPITHELIAL CELL,UR MODERATE /LPF (FEW)
[2023-03-12] MEDS ORDERED: octreotide inj. 500 MCG in normal saline 100ml IV soln 97.5 ML IV SCH (08:00)
[2023-03-12] MEDS: K and/or MAG REPLACEMENT MC SCH ×2 (08:00→20:00)
--- NOTE | 2023-03-12 08:04 | NUR ---
SPOKE WITH DR. HIGGINS, UPDATED MD ON PT HX OF ETOH USE AND PT ON DAY 3 OF NOT DRINKING.
[2023-03-12] MEDS ORDERED: dextrose 50%-water 50ml dispensing syringe IV PRN (08:05)
[2023-03-12] MEDS ORDERED: haloperidol lactate 5mg/ml inj IM PRN (08:05)
[2023-03-12] MEDS ORDERED: haloperidol 5mg tablet PO PRN (08:05)
[2023-03-12] MEDS: LORazepam 2 mg/ml vial IV PRN ×4 (08:52→21:53)
[2023-03-12 10:36] LABS: MAGNESIUM 1.2 MG/DL (1.5-2.4)
[2023-03-12 11:03] LABS: HEMOGLOBIN 7.1 g/dl (12.0-16.0); MEAN CORPUSCULAR HEMOGLOBIN 27.3 PG (27.0-31.0); MEAN CORPUSCULAR HGB CONC 33.5 g/dL (33.0-36.5); MEAN CORPUSCULAR VOLUME 81.3 FL (78-98); PLATELET COUNT 140 X10'3 (140-440); RED BLOOD COUNT 2.59 X10'6 (4.20-5.60); RED CELL DISTRIBUTION WIDTH 16.8 % (11.5-14.5); WHITE BLOOD COUNT 8.5 X10'3 (4.5-11.0)
[2023-03-12] MEDS: thiamine 100mg/ml 2ml inj. IV SCH ×2 (12:29→21:53)
[2023-03-12] MEDS: pantoprazole 40MG/NS 100ML BAG 100 ML IV SCH ×3 (12:29→22:34)
[2023-03-12] MEDS ORDERED: diphenhydrAMINE 50 mg/ml inj IV ONE (17:30)
--- NOTE | 2023-03-12 17:45 | NUR ---
Pt reports having a lot of itching and co itching started after 2 unit of PRBCs was given. Reported C/O to Hospitalist Dr. Zamora, received VO to give pt benadryl 25mg IV x 1 before administering blood transfusion.
--- NOTE | 2023-03-12 19:04 | NUR ---
assumed care from yang jenkins. iv in right foot infiltrated so it was removed.
--- NOTE | 2023-03-12 19:32 | NUR ---
attempted new IV start to right upper arm with us guidance. when cannulating, pt jumped and pulled iv out. pt unable to sit still, administered ativan prior but did not help.
[2023-03-12] MEDS: gabapentin 300mg capsule PO SCH (19:55)
--- NOTE | 2023-03-12 20:05 | NUR ---
attempted to call report to [facility]. charge nurse stated nurse not assigned yet and to call back later.
--- NOTE | 2023-03-12 20:24 | NUR ---
attempted to call report to floor again, nurse unavailible. er charge nurse notified will take pt up and give bedside report.
[2023-03-13] VITALS (8 sets, daily range): BP systolic 94–116; BP diastolic 57–71
[2023-03-13] MEDS: LORazepam 2 mg/ml vial IV PRN ×3 (00:45→04:34)
[2023-03-13] MEDS: octreotide inj. 500 MCG in normal saline 100ml IV soln 97.5 ML IV SCH ×2 (01:19→20:20)
[2023-03-13] MEDS: pantoprazole 40MG/NS 100ML BAG 100 ML IV SCH ×5 (01:19→22:42)
--- NOTE | 2023-03-13 04:45 | NUR ---
pt was found out of bed with bed alarm on. pt trying to use the restroom. pt very impulsive, educated pt she is a fall risk and that she need to use her call light. helped pt to BSC and back to bed. bed alarm back on, call light in reach and will continue to monitor
[2023-03-13] MEDS: normal saline 1000ml 1,000 ML IV SCH ×3 (05:20→23:41)
--- NOTE | 2023-03-13 06:18 | NUR ---
Problems reprioritized. Patient report given, questions answered & plan of care reviewed with Lexis CRAFT. Addendum: 03/13/23 at 0619 by Kelli Sarmiento RN Amended: Links added.
--- NOTE | 2023-03-13 06:30 | NUR ---
Patient in room PCU 3015. I have received report from Kelli CRAFT and Orientalysa and had the opportunity to ask questions and assume patient care.
[2023-03-13 07:02] LABS: BASOPHILS % (AUTO) 0.5 % (0-1); EOSINOPHILS # (AUTO) 0.3 X10'3 (0-0.9); HEMATOCRIT 22.9 % (35.0-45.0); HEMOGLOBIN 7.7 g/dl (12.0-16.0); LYMPHOCYTES # (AUTO) 1.4 X10'3 (1.1-4.8); LYMPHOCYTES % (AUTO) 35.1 % (21-51); MEAN CORPUSCULAR HEMOGLOBIN 27.3 PG (27.0-31.0); MEAN CORPUSCULAR HGB CONC 33.5 g/dL (33.0-36.5); MEAN CORPUSCULAR VOLUME 81.6 FL (78-98); MONOCYTES # (AUTO) 0.3 X10'3 (0-0.9); MONOCYTES % (AUTO) 6.5 % (2-12); NEUTROPHILS % (AUTO) 50.9 % (42-75); PLATELET COUNT 91 X10'3 (140-440); WHITE BLOOD COUNT 3.9 X10'3 (4.5-11.0)
[2023-03-13 07:13] LABS: ALBUMIN 2.6 G/DL (3.4-5.0); ANION GAP 8 (8-16); BLOOD UREA NITROGEN 24 MG/DL (7-18); CHLORIDE 105 MMOL/L (99-107); CREATININE 0.96 MG/DL (0.40-0.90); GLUCOSE 91 MG/DL (70-104); MAGNESIUM 1.6 MG/DL (1.5-2.4); POTASSIUM 3.1 MMOL/L (3.5-5.1); SODIUM 140 MMOL/L (135-145); TOTAL CARBON DIOXIDE 26.8 MMOL/L (24-32); eGFR 62 ML/MIN
[2023-03-13] MEDS: ferrous sulfate 325mg tablet PO SCH (08:00)
[2023-03-13] MEDS: K and/or MAG REPLACEMENT MC SCH ×2 (08:00→20:00)
[2023-03-13] MEDS: gabapentin 300mg capsule PO SCH ×3 (08:00→22:18)
[2023-03-13] MEDS ORDERED: folic acid 1mg tablet PO SCH (08:00)
[2023-03-13] MEDS: thiamine 100mg tablet PO SCH (08:00)
[2023-03-13] MEDS: thiamine 100mg/ml 2ml inj. IV SCH ×3 (08:00→14:01)
[2023-03-13] MEDS: folic acid 1mg/0.2ml inj IV SCH (08:00)
[2023-03-13] MEDS ORDERED: MIDAZolam 1 MG/ML 5ML VIAL ONE (08:50)
[2023-03-13] MEDS ORDERED: LIDOcaine Viscous 15ml cup ONE (08:50)
[2023-03-13] MEDS ORDERED: fentaNYL/PF 50MCG/1 ML 2ML syringe ONE (08:50)
--- NOTE | 2023-03-13 11:19 | NUR ---
Paged Dr Zamora Wanting to know if it is okay to advance diet to regular as it was okay with GI. Also wanting to know if we are going to continue protonix and sandostatin drips.
[2023-03-13] MEDS: potassium Cl 20 mEq SR tablet PO PRN ×3 (14:01→22:18)
--- NOTE | 2023-03-13 15:58 | NUR ---
PAGER ID: [phone] MESSAGE: [phone] [id number] Caterina Patel paging you again regarding med questions... please call back.
--- NOTE | 2023-03-13 22:54 | NUR ---
AGER ID: [phone] MESSAGE: pt rm [id number] Caterina Patel lost an IV has just one and are unable to start another she is a hard stick We are running the protonix and her normal saline right now and are unable to run her sandostatin Kymberly [id number]
[2023-03-14] MEDS: pantoprazole 40MG/NS 100ML BAG 100 ML IV SCH ×3 (01:00→08:16)
[2023-03-14 03:23] VITALS: BP 89/58
[2023-03-14] MEDS: normal saline 1000ml 1,000 ML IV SCH (05:32)
[2023-03-14 06:26] LABS: BASOPHILS % (AUTO) 0.5 % (0-1); EOSINOPHILS # (AUTO) 0.3 X10'3 (0-0.9); EOSINOPHILS % (AUTO) 7.5 % (0-6); HEMATOCRIT 22.4 % (35.0-45.0); HEMOGLOBIN 7.6 g/dl (12.0-16.0); LYMPHOCYTES % (AUTO) 29.2 % (21-51); MEAN CORPUSCULAR HGB CONC 33.8 g/dL (33.0-36.5); MEAN PLATELET VOLUME 7.1 FL (7.4-10.4); MONOCYTES # (AUTO) 0.3 X10'3 (0-0.9); MONOCYTES % (AUTO) 8.7 % (2-12); NEUTROPHILS # (AUTO) 1.9 X10'3 (1.8-7.7); NEUTROPHILS % (AUTO) 54.1 % (42-75); PLATELET COUNT 109 X10'3 (140-440); RED CELL DISTRIBUTION WIDTH 16.2 % (11.5-14.5); WHITE BLOOD COUNT 3.5 X10'3 (4.5-11.0)
[2023-03-14 06:30] VITALS: BP 123/75
[2023-03-14 06:41] LABS: ALBUMIN 2.4 G/DL (3.4-5.0); ANION GAP 6 (8-16); BLOOD UREA NITROGEN 16 MG/DL (7-18); BUN/CREATININE RATIO 18.2 (10.0-20.0); CALCIUM 7.3 MG/DL (8.5-10.1); CHLORIDE 109 MMOL/L (99-107); CREATININE 0.88 MG/DL (0.40-0.90); GLUCOSE 87 MG/DL (70-104); MAGNESIUM 1.6 MG/DL (1.5-2.4); POTASSIUM 4.3 MMOL/L (3.5-5.1); SODIUM 139 MMOL/L (135-145); TOTAL CARBON DIOXIDE 23.6 MMOL/L (24-32); eGFR 68 ML/MIN
--- NOTE | 2023-03-14 06:41 | NUR ---
Problems reprioritized. Patient report given, questions answered & plan of care reviewed with LUANA MENEZES.
[2023-03-14] MEDS: K and/or MAG REPLACEMENT MC SCH (08:00)
[2023-03-14] MEDS ORDERED: LORazepam 2 mg/ml vial IV PRN (08:05)
[2023-03-14] MEDS ORDERED: LORazepam 1 MG tablet PO PRN (08:05)
[2023-03-14] MEDS: thiamine 100mg tablet PO SCH (08:16)
[2023-03-14] MEDS: ferrous sulfate 325mg tablet PO SCH (08:16)
[2023-03-14] MEDS: gabapentin 300mg capsule PO SCH (08:16)
[2023-03-14] MEDS: folic acid 1mg/0.2ml inj IV SCH (08:23)
[2023-03-14] MEDS ORDERED: PANT40TA54 PO (10:26)
[2023-03-14 11:06] VITALS: BP 115/70
[2023-03-16] MEDS ORDERED: LORazepam 1 MG tablet PO PRN (08:05)
[2023-03-16] MEDS ORDERED: LORazepam 2 mg/ml vial IV PRN (08:05)
[2023-03-17] MEDS ORDERED: thiamine 100mg tablet PO SCH (08:00)
[2023-03-17] MEDS ORDERED: folic acid 1mg tablet PO SCH (08:00)
== END 2023-03-14 13:49 | disposition home or self-care (01) | DRG 243 ==
LOC: ER 04:05 → ED HOLD 07:27 → EDBEDREQ 19:54 → PCU 3S 20:45
PROVIDERS: ADMIT Internal Medicine; ATTEND Family Medicine
PROC: 30233N1 Transfusion of Nonautologous Red Blood Cells into Peripheral Vein, Percutaneous Approach (ICD-10-PCS; 2023-03-12)
PROC: 0DB78ZX Excision of Stomach, Pylorus, Via Natural or Artificial Opening Endoscopic, Diagnostic (ICD-10-PCS; principal; 2023-03-13)
DX: K21.01 Gastro-esophageal reflux disease with esophagitis, with bleeding (principal); K70.9 Alcoholic liver disease, unspecified; D62 Acute posthemorrhagic anemia; K29.70 Gastritis, unspecified, without bleeding; E87.6 Hypokalemia; F10.20 Alcohol dependence, uncomplicated; F15.90 Other stimulant use, unspecified, uncomplicated; F17.200 Nicotine dependence, unspecified, uncomplicated; N28.9 Disorder of kidney and ureter, unspecified; Z79.899 Other long term (current) drug therapy
CPT/HCPCS: 36415; 36430; 43239; 71045; 80048; 80053; 80320; 81001; 82140; 82948; 83735; 84132; 85025; 85027; 85610; 85730; 86885; 86900; 86901; 86920; 87081; 87088; 99152; 99285; A4620; C9113; G0378; J0696; J1200; J2060; J2250; J2354; J2405; J3010; J3411; J3490; J7030; J7040; P9016

== ENCOUNTER 2023-06-17 13:51 | Emergency (ER) | payer MEDICAID ==
[~2023-06-17] VITALS: Ht 175.3 cm; Wt 75.0 kg
[~2023-06-17 13:51] MED LIST changes: +FERR325T7 PO; +FOLI1TAB27 PO; +GABA-530 PO; -GABA300C PO; -IBUP-1985 PO; -MULT-25 PO; -ONDA4TAB6 PO; +PANT40TA54 PO; +THIA100T66 PO; -folic acid tablet PO; -thiamine tablet PO
[2023-06-17 16:51] VITALS: TEMP 98.5
[2023-06-17] MEDS ORDERED: thiamine 100mg/ml 2ml inj. IV ONE (19:25)
[2023-06-17] MEDS ORDERED: normal saline 1000ML IV soln IVB ONE (19:25)
[2023-06-17] MEDS: acetaminophen 325mg tablet PO ONE ×2 (19:25→20:37)
[2023-06-17] MEDS ORDERED: ondansetron/PF 4mg/2ml inj IV ONE (19:45)
[2023-06-17 20:12] LABS: INR 1.3 INR
[2023-06-17 20:17] LABS: ALANINE AMINOTRANSFERASE 75 U/L (12-78); ALBUMIN 3.7 G/DL (3.4-5.0); ALBUMIN/GLOBULIN RATIO 0.9 (1.1-1.5); ALKALINE PHOSPHATASE 181 IU/L (46-116); ANION GAP 7 (8-16); ASPARTATE AMINO TRANSFERASE 208 U/L (10-37); BILIRUBIN,TOTAL 2.2 MG/DL (0.1-1.0); BLOOD UREA NITROGEN 22 MG/DL (7-18); BUN/CREATININE RATIO 26.8 (10.0-20.0); CALCIUM 8.6 MG/DL (8.5-10.1); CHLORIDE 96 MMOL/L (99-107); CREATININE 0.82 MG/DL (0.40-0.90); ETHANOL 143 MG/DL (<10); GLUCOSE 152 MG/DL (70-104); POTASSIUM 3.4 MMOL/L (3.5-5.1); SODIUM 136 MMOL/L (135-145); TOTAL CARBON DIOXIDE 33.1 MMOL/L (24-32); eCRCL 86 ML/MIN; eGFR 74 ML/MIN
[2023-06-17 20:18] LABS: LIPASE 23 U/L (16-77)
[2023-06-17 20:20] LABS: BASOPHILS % (AUTO) 0.6 % (0-1); EOSINOPHILS % (AUTO) 0.1 % (0-6); HEMATOCRIT 25.7 % (35.0-45.0); HEMOGLOBIN 8.1 g/dl (12.0-16.0); LYMPHOCYTES # (AUTO) 0.9 X10'3 (1.1-4.8); LYMPHOCYTES % (AUTO) 15.7 % (21-51); MEAN CORPUSCULAR HEMOGLOBIN 24.1 PG (27.0-31.0); MEAN CORPUSCULAR HGB CONC 31.5 g/dL (33.0-36.5); MEAN CORPUSCULAR VOLUME 76.5 FL (78-98); MONOCYTES # (AUTO) 0.4 X10'3 (0-0.9); MONOCYTES % (AUTO) 6.5 % (2-12); NEUTROPHILS # (AUTO) 4.6 X10'3 (1.8-7.7); NEUTROPHILS % (AUTO) 77.1 % (42-75); PLATELET COUNT 105 X10'3 (140-440); RED BLOOD COUNT 3.36 X10'6 (4.20-5.60); RED CELL DISTRIBUTION WIDTH 20.6 % (11.5-14.5)
[2023-06-17] MEDS ORDERED: LORazepam 2 mg/ml vial IV ONE (20:40)
[2023-06-17] MEDS ORDERED: iohexol 300mg/ml 100ml inj. ONE (20:59)
[2023-06-17 21:15] LABS: PLATELET ESTIMATE DECREASED
[2023-06-17 21:16] LABS: ANISOCYTOSIS 3+; MICROCYTOSIS 1+
[2023-06-17 21:17] LABS: POIKILOCYTOSIS FEW
[2023-06-17 21:20] LABS: HYPOCHROMASIA 1+
[2023-06-17 22:23] LABS: BILIRUBIN,URINE MODERATE (Neg); CLARITY,URINE SLIGHTLY CLOUDY (Clear); COLOR,URINE AMBER (Yellow); GLUCOSE, URINE 100 mg/dl (Neg); KETONES,URINE TRACE mg/dl (Neg); LEUKOCYTE ESTERASE ,URINE NEGATIVE (Neg); NITRITES, URINE NEGATIVE (Neg); OCCULT BLOOD,URINE NEGATIVE (Neg); PH,URINE 6.5 (4.8-8.0); PROTEIN,URINE 30 mg/dl (Neg)
[2023-06-17 22:24] LABS: URINE HCG NEGATIVE (NEG)
[2023-06-17 22:27] LABS: UA COLLECTION TYPE CLN CATCH MIDSTREAM
[2023-06-17 22:28] LABS: SQUAMOUS EPITHELIAL CELL,UR MANY /LPF (FEW)
[2023-06-17 22:29] LABS: MUCUS STRANDS FEW /LPF (Neg); RBC,URINE NONE SEEN /HPF (0-2); WBC,URINE 20-30 /HPF (0-4)
[2023-06-17 22:30] LABS: BACTERIA,URINE 1+ /HPF (Neg)
--- NOTE | 2023-06-17 22:31 | NUR ---
ua rejected for culture.
[2023-06-18] MEDS ORDERED: ondansetron/PF 4mg/2ml inj IV ONE ×3 (00:25)
[2023-06-18] MEDS ORDERED: ONDA4TAB12 PO (00:35)
[2023-06-18 00:52] VITALS: BP 109/63; PULSE 99; RESP 18; O2SAT 95
== END 2023-06-18 00:59 | disposition home or self-care (01) ==
LOC: ER 13:51
DX: F10.10 Alcohol abuse, uncomplicated (principal); R10.32 Left lower quadrant pain; F15.90 Other stimulant use, unspecified, uncomplicated; R50.9 Fever, unspecified; Z79.899 Other long term (current) drug therapy; Y90.9 Presence of alcohol in blood, level not specified
CPT/HCPCS: 36415; 74177; 80053; 80320; 81001; 81025; 83690; 85008; 85025; 85610; 86885; 86900; 86901; 96361; 96374; 96375; 96376; 99285; J2060; J2405; J3411; J3490; J7030; Q9967

== ENCOUNTER 2024-02-29 19:12 | Inpatient (IN) | payer MEDICAID ==
[~2024-02-29] VITALS: Ht 175.3 cm; Wt 69.9 kg
[~2024-02-29 19:12] MED LIST changes: +LORA-269 PO; +ONDA4TAB12 PO
[2024-02-29 20:02] LABS: BASOPHILS # (AUTO) 0.1 X10'3 (0-0.2); BASOPHILS % (AUTO) 0.8 % (0-1); EOSINOPHILS % (AUTO) 0.2 % (0-6); LYMPHOCYTES # (AUTO) 1.4 X10'3 (1.1-4.8); LYMPHOCYTES % (AUTO) 18.9 % (21-51); MEAN CORPUSCULAR HEMOGLOBIN 26.3 PG (27.0-31.0); MEAN CORPUSCULAR HGB CONC 32.6 g/dL (33.0-36.5); MEAN CORPUSCULAR VOLUME 80.8 FL (78-98); MEAN PLATELET VOLUME 7.4 FL (7.4-10.4); MONOCYTES # (AUTO) 0.5 X10'3 (0-0.9); NEUTROPHILS # (AUTO) 5.3 X10'3 (1.8-7.7); NEUTROPHILS % (AUTO) 73.1 % (42-75); PLATELET COUNT 258 X10'3 (140-440); RED BLOOD COUNT 2.55 X10'6 (4.20-5.60); RED CELL DISTRIBUTION WIDTH 22.9 % (11.5-14.5); WHITE BLOOD COUNT 7.3 X10'3 (4.5-11.0)
[2024-02-29 20:12] LABS: HEMOGLOBIN 6.7 g/dl (12.0-16.0)
[2024-02-29 20:13] LABS: HEMATOCRIT 20.6 % (35.0-45.0)
[2024-02-29 20:19] LABS: ALBUMIN 2.7 G/DL (3.4-5.0); ANION GAP 9 (8-16); BLOOD UREA NITROGEN 27 MG/DL (7-18); BUN/CREATININE RATIO 31.4 (10.0-20.0); CALCIUM 8.3 MG/DL (8.5-10.1); CHLORIDE 104 MMOL/L (99-107); CREATININE 0.86 MG/DL (0.40-0.90); GLUCOSE 118 MG/DL (70-104); LIPASE 15 U/L (16-77); POTASSIUM 3.8 MMOL/L (3.5-5.1); SODIUM 138 MMOL/L (135-145); TOTAL CARBON DIOXIDE 24.8 MMOL/L (24-32); eCRCL 81 ML/MIN; eGFR 70 ML/MIN
[2024-02-29 20:33] LABS: APTT 30 SECONDS (22-32); INR 1.4 INR; PROTHROMBIN TIME 14.3 SECONDS (9.0-12.0)
[2024-02-29 21:39] LABS: ETHANOL < 10 MG/DL (<10)
[2024-02-29 21:47] LABS: ANISOCYTOSIS 3+; PLATELET ESTIMATE NORMAL; STOMATOCYTES 1+; TARGET CELLS 1+
[2024-02-29] MEDS ORDERED: potassium Cl 20 mEq SR tablet PO PRN ×2 (22:40)
[2024-02-29] MEDS ORDERED: magnesium hydroxide 30ml (MOM) UD suspension PO PRN (22:40)
[2024-02-29] MEDS ORDERED: mag hydrox/Alum hydrox/simeth 30ml oral suspension PO PRN (22:40)
[2024-02-29] MEDS ORDERED: magnesium 2GM in 50ml NS 50 ML IV PRN (22:40)
[2024-02-29] MEDS ORDERED: morphine 2 MG/ML inj. syringe IV PRN (22:40)
[2024-02-29] MEDS ORDERED: magnesium Cl slow-release 64mg tablet PO PRN (22:40)
[2024-02-29] MEDS ORDERED: potassium Cl 40MEQ/1/2NS 520ml 520 ML IV PRN (22:40)
[2024-02-29] MEDS: CefTRIAXone/D5W-Rocephin 1gm 50 ML IV ONE (23:02)
[2024-02-29] MEDS: pantoprazole 40 MG vial IV STA (23:02)
[2024-02-29] MEDS: octreotide 100mcg/1 ml ampule IV ONE (23:03)
[2024-02-29 23:06] LABS: MAGNESIUM 1.1 MG/DL (1.5-2.4); PRO BRAIN NATRIURETIC PEPTIDE 134 PG/ML (0-125)
[2024-02-29] MEDS: ondansetron/PF 4mg/2ml inj IV PRN (23:06)
[2024-02-29 23:21] VITALS: BP 108/89; PULSE 113; RESP 12; TEMP 100.4
[2024-02-29 23:33] LABS: ALANINE AMINOTRANSFERASE 55 U/L (12-78); ALBUMIN/GLOBULIN RATIO 0.6 (1.1-1.5); ALKALINE PHOSPHATASE 170 IU/L (46-116); ASPARTATE AMINO TRANSFERASE 84 U/L (10-37); BILIRUBIN,TOTAL 2.7 MG/DL (0.1-1.0); TOTAL PROTEIN 6.9 G/DL (6.4-8.2)
[2024-02-29 23:36] VITALS: BP 120/75; PULSE 110; RESP 17; TEMP 99.5
[2024-02-29] MEDS: normal saline 1000ml 1,000 ML IV SCH (23:42)
[2024-02-29] MEDS: octreotide inj. 500 MCG in normal saline 100ml IV soln 97.5 ML IV SCH (23:42)
[2024-02-29] MEDS: thiamine 100mg/ml 2ml inj. IV SCH (23:45)
[2024-03-01] VITALS (14 sets, daily range): BP systolic 105–143; BP diastolic 55–86; PULSE 66–108; RESP 12–20; TEMP 97.4–98.9; O2SAT 93–100
[2024-03-01] MEDS: LORazepam 2 mg/ml vial IV PRN (00:58)
[2024-03-01] MEDS: folic acid 1mg/0.2ml inj IV SCH (01:57)
[2024-03-01] MEDS: magnesium 4gm in 100ml NS 100 ML IV PRN (01:57)
[2024-03-01] MEDS: haloperidol lactate 5mg/ml inj IM PRN (05:09)
[2024-03-01 07:01] LABS: BASOPHILS # (AUTO) 0.1 X10'3 (0-0.2); BASOPHILS % (AUTO) 0.9 % (0-1); EOSINOPHILS # (AUTO) 0.2 X10'3 (0-0.9); EOSINOPHILS % (AUTO) 3.8 % (0-6); HEMOGLOBIN 7.2 g/dl (12.0-16.0); LYMPHOCYTES % (AUTO) 30.2 % (21-51); MEAN CORPUSCULAR HEMOGLOBIN 28.1 PG (27.0-31.0); MEAN CORPUSCULAR HGB CONC 33.8 g/dL (33.0-36.5); MEAN CORPUSCULAR VOLUME 83.1 FL (78-98); MEAN PLATELET VOLUME 7.4 FL (7.4-10.4); MONOCYTES # (AUTO) 0.5 X10'3 (0-0.9); MONOCYTES % (AUTO) 7.2 % (2-12); NEUTROPHILS # (AUTO) 3.8 X10'3 (1.8-7.7); NEUTROPHILS % (AUTO) 57.9 % (42-75); PLATELET COUNT 165 X10'3 (140-440); RED BLOOD COUNT 2.57 X10'6 (4.20-5.60); RED CELL DISTRIBUTION WIDTH 20.6 % (11.5-14.5); WHITE BLOOD COUNT 6.5 X10'3 (4.5-11.0)
[2024-03-01 07:04] LABS: HEMATOCRIT 21.3 % (35.0-45.0)
[2024-03-01 07:22] LABS: ALANINE AMINOTRANSFERASE 45 U/L (12-78); ALBUMIN 2.4 G/DL (3.4-5.0); ALKALINE PHOSPHATASE 145 IU/L (46-116); ANION GAP 10 (8-16); ASPARTATE AMINO TRANSFERASE 68 U/L (10-37); BILIRUBIN,TOTAL 4.7 MG/DL (0.1-1.0); BLOOD UREA NITROGEN 32 MG/DL (7-18); BUN/CREATININE RATIO 36.8 (10.0-20.0); CALCIUM 7.8 MG/DL (8.5-10.1); CHLORIDE 106 MMOL/L (99-107); CREATININE 0.87 MG/DL (0.40-0.90); GLUCOSE 109 MG/DL (70-104); POTASSIUM 3.7 MMOL/L (3.5-5.1); SODIUM 140 MMOL/L (135-145); TOTAL CARBON DIOXIDE 24.2 MMOL/L (24-32); eCRCL 80 ML/MIN; eGFR 69 ML/MIN
[2024-03-01 07:44] LABS: ALBUMIN/GLOBULIN RATIO 0.7 (1.1-1.5)
[2024-03-01] MEDS ORDERED: pantoprazole 40MG/NS 100ML BAG 100 ML IV SCH (08:00)
[2024-03-01] MEDS: K and/or MAG REPLACEMENT MC SCH (08:00)
[2024-03-01] MEDS: pantoprazole 40 MG vial IV SCH (09:26)
[2024-03-01] MEDS: docusate sod 100mg capsule PO SCH (09:27)
[2024-03-01] MEDS: multivitamins, therapeutics tablet PO SCH (09:30)
[2024-03-01 10:01] LABS: MAGNESIUM 3.3 MG/DL (1.5-2.4)
[2024-03-01] MEDS ORDERED: MIDAZolam 1 MG/ML 5ML VIAL ONE (15:11)
[2024-03-01] MEDS ORDERED: fentaNYL/PF 50MCG/1 ML 2ML syringe ONE (15:11)
[2024-03-01] MEDS: propranolol 10mg tablet PO SCH (17:19)
[2024-03-01 17:43] LABS: HEMATOCRIT 24.7 % (35.0-45.0); MEAN CORPUSCULAR HEMOGLOBIN 27.5 PG (27.0-31.0); MEAN CORPUSCULAR HGB CONC 32.4 g/dL (33.0-36.5); MEAN CORPUSCULAR VOLUME 85.1 FL (78-98); MEAN PLATELET VOLUME 7.9 FL (7.4-10.4); PLATELET COUNT 164 X10'3 (140-440); RED CELL DISTRIBUTION WIDTH 20.7 % (11.5-14.5)
[2024-03-01] MEDS ORDERED: CefTRIAXone/D5W-Rocephin 1gm 50 ML IV SCH (21:00)
[2024-03-01] MEDS: LORazepam 1 MG tablet PO PRN (22:41)
[2024-03-02] VITALS (14 sets, daily range): BP systolic 91–120; BP diastolic 52–78; PULSE 70–76; RESP 16–18; TEMP 97.5–98.8; O2SAT 96–100
[2024-03-02 07:10] LABS: BASOPHILS % (AUTO) 1.3 % (0-1); EOSINOPHILS # (AUTO) 0.2 X10'3 (0-0.9); EOSINOPHILS % (AUTO) 6.9 % (0-6); LYMPHOCYTES # (AUTO) 0.9 X10'3 (1.1-4.8); LYMPHOCYTES % (AUTO) 28.2 % (21-51); MEAN CORPUSCULAR HEMOGLOBIN 27.4 PG (27.0-31.0); MEAN CORPUSCULAR HGB CONC 32.2 g/dL (33.0-36.5); MEAN CORPUSCULAR VOLUME 85.1 FL (78-98); MEAN PLATELET VOLUME 7.6 FL (7.4-10.4); MONOCYTES # (AUTO) 0.2 X10'3 (0-0.9); NEUTROPHILS # (AUTO) 1.7 X10'3 (1.8-7.7); NEUTROPHILS % (AUTO) 55.6 % (42-75); PLATELET COUNT 130 X10'3 (140-440); RED BLOOD COUNT 2.28 X10'6 (4.20-5.60); RED CELL DISTRIBUTION WIDTH 20.9 % (11.5-14.5); WHITE BLOOD COUNT 3.1 X10'3 (4.5-11.0)
[2024-03-02 07:16] LABS: HEMATOCRIT 19.4 % (35.0-45.0); HEMOGLOBIN 6.3 g/dl (12.0-16.0)
[2024-03-02] MEDS: gabapentin 300mg capsule PO SCH (07:18)
[2024-03-02 07:29] LABS: ALANINE AMINOTRANSFERASE 60 U/L (12-78); ALBUMIN 2.3 G/DL (3.4-5.0); ALBUMIN/GLOBULIN RATIO 0.7 (1.1-1.5); ALKALINE PHOSPHATASE 139 IU/L (46-116); ANION GAP 8 (8-16); ASPARTATE AMINO TRANSFERASE 154 U/L (10-37); BILIRUBIN,TOTAL 2.2 MG/DL (0.1-1.0); BLOOD UREA NITROGEN 16 MG/DL (7-18); BUN/CREATININE RATIO 21.6 (10.0-20.0); CALCIUM 7.6 MG/DL (8.5-10.1); CHLORIDE 110 MMOL/L (99-107); CREATININE 0.74 MG/DL (0.40-0.90); GLUCOSE 78 MG/DL (70-104); POTASSIUM 3.9 MMOL/L (3.5-5.1); SODIUM 140 MMOL/L (135-145); TOTAL CARBON DIOXIDE 22.3 MMOL/L (24-32); TOTAL PROTEIN 5.7 G/DL (6.4-8.2); eCRCL 94 ML/MIN; eGFR 83 ML/MIN
[2024-03-02 07:53] LABS: PLATELET ESTIMATE DECREASED
[2024-03-02 07:54] LABS: ANISOCYTOSIS 3+; HYPOCHROMASIA 1+; POLYCHROMASIA FEW
[2024-03-02 07:55] LABS: SCHISTOCYTES FEW; STOMATOCYTES 1+; TEAR DROP CELLS FEW
[2024-03-02] MEDS: acetaminophen 325mg tablet PO PRN (19:13)
[2024-03-02 21:46] LABS: BASOPHILS % (AUTO) 0.8 % (0-1); EOSINOPHILS # (AUTO) 0.3 X10'3 (0-0.9); EOSINOPHILS % (AUTO) 5.5 % (0-6); HEMATOCRIT 26.5 % (35.0-45.0); HEMOGLOBIN 8.7 g/dl (12.0-16.0); LYMPHOCYTES # (AUTO) 1.3 X10'3 (1.1-4.8); LYMPHOCYTES % (AUTO) 26.4 % (21-51); MEAN CORPUSCULAR HEMOGLOBIN 28.7 PG (27.0-31.0); MEAN CORPUSCULAR HGB CONC 32.8 g/dL (33.0-36.5); MEAN CORPUSCULAR VOLUME 87.5 FL (78-98); MEAN PLATELET VOLUME 7.7 FL (7.4-10.4); MONOCYTES # (AUTO) 0.3 X10'3 (0-0.9); MONOCYTES % (AUTO) 6.6 % (2-12); NEUTROPHILS # (AUTO) 2.9 X10'3 (1.8-7.7); NEUTROPHILS % (AUTO) 60.7 % (42-75); PLATELET COUNT 156 X10'3 (140-440); RED BLOOD COUNT 3.03 X10'6 (4.20-5.60); RED CELL DISTRIBUTION WIDTH 18.2 % (11.5-14.5); WHITE BLOOD COUNT 4.8 X10'3 (4.5-11.0)
[2024-03-03 06:44] VITALS: BP 102/61; PULSE 82; RESP 16; TEMP 97.5; O2SAT 100
[2024-03-03 07:01] LABS: BASOPHILS % (AUTO) 0.5 % (0-1); EOSINOPHILS # (AUTO) 0.2 X10'3 (0-0.9); HEMOGLOBIN 9.4 g/dl (12.0-16.0); LYMPHOCYTES # (AUTO) 0.9 X10'3 (1.1-4.8); LYMPHOCYTES % (AUTO) 22.1 % (21-51); MEAN CORPUSCULAR HEMOGLOBIN 28.2 PG (27.0-31.0); MEAN CORPUSCULAR HGB CONC 32.5 g/dL (33.0-36.5); MEAN PLATELET VOLUME 7.5 FL (7.4-10.4); MONOCYTES # (AUTO) 0.2 X10'3 (0-0.9); MONOCYTES % (AUTO) 4.5 % (2-12); NEUTROPHILS # (AUTO) 2.9 X10'3 (1.8-7.7); NEUTROPHILS % (AUTO) 68.9 % (42-75); PLATELET COUNT 149 X10'3 (140-440); RED BLOOD COUNT 3.34 X10'6 (4.20-5.60); RED CELL DISTRIBUTION WIDTH 18.4 % (11.5-14.5); WHITE BLOOD COUNT 4.2 X10'3 (4.5-11.0)
[2024-03-03 07:17] LABS: ALANINE AMINOTRANSFERASE 56 U/L (12-78); ALBUMIN 2.5 G/DL (3.4-5.0); ALBUMIN/GLOBULIN RATIO 0.7 (1.1-1.5); ALKALINE PHOSPHATASE 164 IU/L (46-116); ANION GAP 10 (8-16); ASPARTATE AMINO TRANSFERASE 102 U/L (10-37); BILIRUBIN,TOTAL 3.6 MG/DL (0.1-1.0); BLOOD UREA NITROGEN 10 MG/DL (7-18); BUN/CREATININE RATIO 14.9 (10.0-20.0); CALCIUM 8.1 MG/DL (8.5-10.1); CHLORIDE 107 MMOL/L (99-107); CREATININE 0.67 MG/DL (0.40-0.90); GLUCOSE 93 MG/DL (70-104); POTASSIUM 3.8 MMOL/L (3.5-5.1); SODIUM 139 MMOL/L (135-145); TOTAL CARBON DIOXIDE 22.4 MMOL/L (24-32); TOTAL PROTEIN 6.2 G/DL (6.4-8.2); eCRCL 104 ML/MIN; eGFR > 90 ML/MIN
[2024-03-03 08:00] VITALS: RESP 16
[2024-03-03] MEDS ORDERED: ONDA4TAB12 PO (09:33)
[2024-03-03] MEDS ORDERED: FOLI1TAB27 PO (09:33)
[2024-03-03] MEDS ORDERED: thiamine tablet PO (09:33)
[2024-03-03] MEDS ORDERED: PROP10TA10 PO (09:33)
[2024-03-03] MEDS ORDERED: THIA100T66 PO (09:33)
[2024-03-03] MEDS ORDERED: GABA-530 PO (09:33)
[2024-03-03] MEDS ORDERED: PANT40TA54 PO (09:33)
[2024-03-03] MEDS ORDERED: LACT10SO78 PO (09:36)
[2024-03-03 10:13] VITALS: BP 111/69; PULSE 75; RESP 16; TEMP 98.3; O2SAT 99
[2024-03-04] MEDS ORDERED: thiamine 100mg tablet PO SCH (08:00)
[2024-03-05] MEDS ORDERED: folic acid 1mg tablet PO SCH (08:00)
[2024-03-05] MEDS ORDERED: LORazepam 1 MG tablet PO PRN (16:35)
== END 2024-03-03 11:00 | disposition home or self-care (01) | DRG 243 ==
LOC: ER 19:13 → ED HOLD 22:42 → ORTHO 4S 03-01 00:30 → UNDODISIN 03-01 20:30
PROVIDERS: ADMIT Internal Medicine Critical Care Medicine; ATTEND Internal Medicine
PROC: 30233N1 Transfusion of Nonautologous Red Blood Cells into Peripheral Vein, Percutaneous Approach (ICD-10-PCS; principal; 2024-02-29)
PROC: 0DJ08ZZ Inspection of Upper Intestinal Tract, Via Natural or Artificial Opening Endoscopic (ICD-10-PCS; 2024-03-01)
DX: K20.91 Esophagitis, unspecified with bleeding (principal); K76.6 Portal hypertension; D62 Acute posthemorrhagic anemia; K70.30 Alcoholic cirrhosis of liver without ascites; D50.9 Iron deficiency anemia, unspecified; K31.89 Other diseases of stomach and duodenum; K44.9 Diaphragmatic hernia without obstruction or gangrene; K29.70 Gastritis, unspecified, without bleeding
CPT/HCPCS: 36415; 36430; 43235; 76700; 80053; 80320; 83605; 83690; 83735; 83880; 84484; 85008; 85025; 85027; 85610; 85730; 86885; 86900; 86901; 86920; 87040; 87081; 97116; 97161; 97530; 99152; 99285; A4620; C9113; G0378; J0696; J1630; J2060; J2250; J2354; J2405; J3010; J3411; J3475; J3490; J7030; J7040; P9016

== ENCOUNTER 2024-09-16 20:05 | Emergency (ER) | payer MEDICAID ==
[~2024-09-16] VITALS: Ht 172.7 cm; Wt 68.2 kg
[~2024-09-16 20:05] MED LIST changes: +LACT10SO78 PO; +ONDA-243 PO; -ONDA4TAB12 PO; +PROP10TA10 PO; +thiamine tablet PO
[2024-09-16 22:33] VITALS: BP 149/94; PULSE 115; RESP 16; TEMP 98.1; O2SAT 99
[2024-09-16] MEDS: acetaminophen 325mg tablet PO STA (22:37)
== END 2024-09-16 22:41 | disposition home or self-care (01) ==
LOC: ER 20:06
DX: S06.0X0D Concussion without loss of consciousness, subsequent encounter (principal); S01.01XD Laceration without foreign body of scalp, subsequent encounter; F15.90 Other stimulant use, unspecified, uncomplicated; F10.90 Alcohol use, unspecified, uncomplicated; W18.39XD Other fall on same level, subsequent encounter
CPT/HCPCS: 99282

== ENCOUNTER 2025-06-25 10:02 | Outpatient (CLI) | payer MEDICAID ==
--- NOTE | 2025-06-25 11:09 | RADIOLOGY REPORT ---
INDICATION: LOW BACK PAIN COMPARISON: None TECHNIQUE: 3 views of the lumbar spine were obtained. FINDINGS: Postsurgical hardware is visualized from L4-S1. Mild multilevel degenerative disc disease of the lumbosacral spine. No acute fracture, vertebral compression deformity or aggressive osseous lesions. The paravertebral soft tissues are grossly unremarkable. IMPRESSION: No acute fracture.
== END 2025-06-25 23:59 | disposition home or self-care (01) ==
LOC: RAD 10:02
PROVIDERS: ATTEND Nurse Practitioner Family
DX: M51.379 Other intervertebral disc degeneration, lumbosacral region without mention of lumbar back pain or lower extremity pain (principal); M54.50 Low back pain, unspecified
CPT/HCPCS: 72100

== ENCOUNTER 2025-06-25 16:22 | Outpatient (CLI) | payer MEDICAID ==
[2025-06-25 17:00] LABS: MEAN PLATELET VOLUME 7.1 FL (7.4-10.4); RED CELL DISTRIBUTION WIDTH 21.5 % (11.5-14.5)
[2025-06-25 17:14] LABS: INR 1.2 INR
[2025-06-25 17:32] LABS: CREATININE 0.96 MG/DL (0.40-0.90); TOTAL CARBON DIOXIDE 26.4 MMOL/L (24-32); eGFR 61 ML/MIN
[2025-06-25 17:54] LABS: BANDS% (MANUAL) 6.0 % (0-10); EOSINOPHILS % (MANUAL) 4.0 % (0-6); LYMPHOCYTES % (MANUAL) 18.0 % (21-51); MONOCYTES % (MANUAL) 7.0 % (2-12); NEUTROPHILS % (MANUAL) 65.0 % (42-75)
[2025-06-25 17:56] LABS: PLATELET ESTIMATE NORMAL
== END 2025-06-25 23:59 | disposition home or self-care (01) ==
LOC: RAD 16:22
PROVIDERS: ATTEND Nurse Practitioner Family
DX: R53.83 Other fatigue (principal)
CPT/HCPCS: 36415; 80053; 84443; 85007; 85025; 85610